=== PATIENT | female | born 1995 | race Caucasian/White ===

== ENCOUNTER 2016-03-28 17:00 | Emergency (ER) | payer OTHER ==
[~2016-03-28] VITALS: Ht 167.6 cm; Wt 56.8 kg
[~2016-03-28 17:00] MED LIST: AMOXICILLIN 50500 MG PO; SPRINTEC 35 MCG1 TAB PO
[2016-03-28 17:12] VITALS: TEMP 98.2
[2016-03-28] MEDS ORDERED: AMOXICILLIN 8751 TAB PO (18:00)
[2016-03-28 18:11] VITALS: BP 113/64; PULSE 56
== END 2016-03-28 18:11 | disposition home or self-care (01) ==
LOC: COL.ER 17:00
DX: R22.0 Localized swelling, mass and lump, head (principal)

== ENCOUNTER 2017-08-12 21:10 | Emergency (ER) | payer OTHER ==
[~2017-08-12] VITALS: Ht 167.6 cm; Wt 70.5 kg
[~2017-08-12 21:10] MED LIST changes: +AMOXICILLIN 8751 TAB PO
[2017-08-12 21:17] VITALS: BP 113/74; TEMP 100.2
[2017-08-12 22:30] VITALS: PULSE 70
== END 2017-08-12 22:32 | disposition home or self-care (01) ==
LOC: COL.ER 21:10
DX: S61.411A Laceration without foreign body of right hand, initial encounter (principal); Z23 Encounter for immunization; W19.XXXA Unspecified fall, initial encounter; W26.8XXA Contact with other sharp object(s), not elsewhere classified, initial encounter

== ENCOUNTER → 2019-06-09 | Outpatient (CLI) | payer OTHER, MEDICAID ==
[~2019-06-09] MED LIST changes: +CALCIUM CARBON650 M2 PO; +MOTRIN 800800 MG/TAB PO; +NATURAL IRON65 MG PO; +PERCOCET 325 MG1 TA2 PO; +PRENATAL TABLET PO; +PRILOSEC10 MG PO
== END ==
LOC: DIA.ED 08:45
DX: O24.419 Gestational diabetes mellitus in pregnancy, unspecified control (principal)

== ENCOUNTER 2019-06-18 04:02 | Inpatient (IN) | payer OTHER, MEDICAID ==
[2019-06-18] VITALS (12 sets, daily range): BP systolic 115–158; BP diastolic 73–102; PULSE 53–80; TEMP 98–998.6
[~2019-06-18] VITALS: Ht 170.2 cm; Wt 72.3 kg
--- NOTE | 2019-06-18 04:00 | NUR ---
G1L0. 34-5. Ambulatory to LDR 3 with significant other. Clean gown on. EFM and TOCO explained and applied. Pt states she woke up to her water breaking at 0300, clear fluid noted. Pt states contractions are 3 mins apart since SROM. Reports good movement. SVE 6-7/90/+1. Amniotest + with large amount of clear fluid noted. Pt requesting epidural. Plan of care explained to pt. 0405: called and updated on pts status. See physican notification. 0410: Liset HAIR MACHINE OPERATOR notified. 0415: Pt yelled out stating she was feeling pressure. SVE C/+2. requested at hospital. Pt encouraged to breath through contractions. This RN remains at bedside with Ford CROFT. IV started and LR bolus infusing without difficulties. 0426: at bedside for delivery. Pt prepped for delivery. 0427: Spontaneous delivery of viable male infant by . Infant to mothers chest where dried and stimulated by nursery RN. Cord clamped X2 and cut by FOB. Care of infant assumed by Asael CROFT. 0435: Spontaneous delivery of intact placenta by . Pitocin started at 333mus/her per protocol. Perineum intact. Pericare provided, pt repositioned in bed, pads changed and ice pack applied. Plan of care and safety precautions explained to pt who verbalizes understanding. Call light within reach.
[~2019-06-18 04:02] MED LIST changes: -CALCIUM CARBON650 M2 PO; -MOTRIN 800800 MG/TAB PO; -NATURAL IRON65 MG PO; -PERCOCET 325 MG1 TA2 PO; -PRENATAL TABLET PO; -PRILOSEC10 MG PO
[2019-06-18 04:54] LABS: BASO % 0.3 % (0.0-2.0); EOS # 0.1 (0.0-0.7); GRAN # 6.5 (1.4-6.5); GRAN % 58.6 % (42.2-75.2); HEMATOCRIT 39.7 % (37.0-47.0); LYMPH # 3.5 (1.2-3.4); LYMPH % 31.8 % (20.0-51.0); MEAN CELL VOLUME 82 fl (80.0-100.0); MEAN CORPUSCULAR HEMOGLOBIN 27 pg (27.0-31.0); MEAN CORPUSCULAR HGB CONC 33 g/dl (33.0-37.0); MEAN PLATELET VOLUME 10.9 fl (7.4-10.4); MONO # 0.9 (0.1-0.6); MONO % 7.8 % (1.7-9.3); PLATELET COUNT 295 K/mm3 (130-400); RED BLOOD COUNT 4.83 M/mm3 (4.10-5.30); REDCELL DISTRIBUTION WIDTH-CV 12.5 % (11.5-14.5)
[2019-06-18] MEDS ORDERED: PRENATAL TABLET PO (05:07)
[2019-06-18] MEDS ORDERED: NATURAL IRON65 MG PO (05:08)
[2019-06-18] MEDS ORDERED: PRILOSEC10 MG PO (05:08)
[2019-06-18] MEDS ORDERED: CALCIUM CARBON650 M2 PO (05:08)
[2019-06-18 05:32] LABS: TRICYCLIC ANTIDEPRESS URINE NEGATIVE
--- NOTE | 2019-06-18 15:17 | NUR ---
INTO NURSERY TO VISIT .
[2019-06-19 02:00] VITALS: BP 124/81; PULSE 70; TEMP 97.9
[2019-06-19 08:51] VITALS: BP 123/74; PULSE 74; TEMP 97.8
--- NOTE | 2019-06-19 14:52 | NUR ---
social services director received a referral from OB for the patient due to the FOB being a registered sex offender and a history of marijuana use. SW contacted the patient's nurse and she reports no concerns. SW contacted the patient at [phone]. The patient's parents live here in town and are supportive. The patient has no other children. The patient has a carseat, crib, clothes and diapers. The patient does not have WIC but plans to sign up. The patient has a history of marijuana use. The patient states she no longer uses and does not need treatment because she is "done" with that. SW inquired if the patient has anxiety and or depression. The patient has had anxiety in the past and used to see a talk therapist in [facility] office. She was not sure what her name was. The patient knows she can get support for her anxiety if it comes back. [facility] address safety due to the FOB being a registered sex offender. The patient states she is "fine" and would know where to go if she felt unsafe. KATHARINA collaborated the above information with the patient's nurse.
[2019-06-19 21:58] VITALS: BP 120/70; PULSE 73; TEMP 97.8
[2019-06-20] MEDS ORDERED: MOTRIN 800800 MG/TAB PO (07:01)
[2019-06-20] MEDS ORDERED: PERCOCET 325 MG1 TA2 PO (07:02)
[2019-06-20 07:24] VITALS: BP 127/88; PULSE 62; TEMP 97.6
== END 2019-06-20 11:55 | disposition home or self-care (01) | DRG 807 ==
LOC: LDRO 04:02 → OB 04:16 → LDR 04:16 → OB 07:14
PROVIDERS: Obstetrics & Gynecology; ADMIT Obstetrics & Gynecology
PROC: 10E0XZZ Delivery of Products of Conception, External Approach (ICD-10-PCS; principal; 2019-06-18)
DX: O42.013 Preterm premature rupture of membranes, onset of labor within 24 hours of rupture, third trimester (principal); Z37.0 Single live birth; Z3A.34 34 weeks gestation of pregnancy; O36.5930 Maternal care for other known or suspected poor fetal growth, third trimester, not applicable or unspecified; O24.420 Gestational diabetes mellitus in childbirth, diet controlled; O35.8XX0 Maternal care for other (suspected) fetal abnormality and damage, not applicable or unspecified
CPT/HCPCS: J2590; J7120

== ENCOUNTER → 2019-07-15 | Outpatient (CLI) | payer OTHER, MEDICAID ==
[~2019-07-15] MED LIST changes: +CALCIUM CARBON650 M2 PO; +MOTRIN 800800 MG/TAB PO; +NATURAL IRON65 MG PO; +PERCOCET 325 MG1 TA2 PO; +PRENATAL TABLET PO; +PRILOSEC10 MG PO
--- NOTE | 2019-07-15 11:06 | NUR ---
Pt, Shruthi Haas, presents for outpatient consult with 4 week old baby boy, Onur Gabriel, who was born and released from [facility] on 07/12/19. Onur was born by at 33 weeks gestation on [birth year]. He weighed 4#12.9oz (2180 gms) at and was transfered to [facility]. Onur' discharge weight per pt's report was 6#6oz. He remains consistent with 3 hour feeds; receives 2-60ml bottles of fortified breastmilk daily and breastfeeds directly for the other 6 feedings. Pt reports voids and stools are QS. Pt pumps at bottle feedings, collecting 2-3 oz and prn as Onur often only nurses from one breast each feeding. Today Onur weighs 6#11.4oz (3044 gms). He latches easily to the right breast and transfer 38gms, and from the left side he transfers 14 gms for a total gain of 52 gms (1.8 oz). POC: Continue with current feeding and pumping plan. F/U: Dr. Velazquez on Thursday July 18, 2019. Questions invited and answered.
== END ==
LOC: LAC 10:43
DX: Z39.1 Encounter for care and examination of lactating mother (principal); Z71.9 Counseling, unspecified

== ENCOUNTER 2020-11-12 11:58 | Emergency (ER) | payer OTHER ==
[~2020-11-12] VITALS: Ht 167.7 cm; Wt 70.5 kg
[2020-11-12 12:31] VITALS: TEMP 98.7
[2020-11-12] MEDS ORDERED: NORCO 325 MG-51 TAB PO (14:23)
[2020-11-12 14:45] VITALS: BP 113/76; PULSE 75
== END 2020-11-12 14:45 | disposition home or self-care (01) ==
LOC: COL.ER 11:58
DX: S92.355A Nondisplaced fracture of fifth metatarsal bone, left foot, initial encounter for closed fracture (principal); X50.9XXA Other and unspecified overexertion or strenuous movements or postures, initial encounter; Y93.01 Activity, walking, marching and hiking
CPT/HCPCS: 31865; L4386

== ENCOUNTER 2023-05-12 02:00 | Emergency (ER) | payer BC ==
[~2023-05-12] VITALS: Ht 170.2 cm; Wt 68.2 kg
[~2023-05-12 02:00] MED LIST changes: +NORCO 325 MG-51 TAB PO
[2023-05-12 02:09] VITALS: BP 126/83; TEMP 98.7
[2023-05-12] MEDS ORDERED: Ibuprofen 600 MG TAB PO ONE (02:30)
[2023-05-12 03:14] VITALS: PULSE 78
== END 2023-05-12 03:14 | disposition home or self-care (01) ==
LOC: COL.ER 02:00
DX: S93.401A Sprain of unspecified ligament of right ankle, initial encounter (principal); W10.8XXA Fall (on) (from) other stairs and steps, initial encounter; X50.1XXA Overexertion from prolonged static or awkward postures, initial encounter; Y93.02 Activity, running